=== PATIENT | male | born 1985 | race Caucasian/White ===

== ENCOUNTER 2020-09-21 16:37 | Emergency (ER) | payer OTHER ==
[~2020-09-21] VITALS: Ht 172.7 cm; Wt 81.6 kg
== END 2020-09-21 17:08 | disposition home or self-care (01) ==
LOC: ER 17:03
DX: R06.02 Shortness of breath (principal); R05 Cough; R53.81 Other malaise; M54.5 Low back pain; R51.9 Headache, unspecified
CPT/HCPCS: 99282